=== PATIENT | male | born 1950 | race Two or more races ===

== ENCOUNTER 2017-08-05 20:24 | Emergency (ER) | payer MEDICAID, MEDICARE ==
[~2017-08-05] VITALS: Ht 165.1 cm; Wt 81.6 kg
[2017-08-05] MEDS ORDERED: cloNIDine HCL 0.1 MG TAB PO ONE (20:30)
[2017-08-05 21:28] LABS: Basophils # (auto) 0.1 uL; Basophils % (auto) 0.5 % (0.0-2.0); Eosinophils # (auto) 0 uL; Eosinophils % (auto) 0.2 % (0.0-7.0); Lymphocytes # (auto) 0.8 uL; Mean Corpuscular Hgb Conc. 34.9 g/dL (32.0-36.0); Monocytes # (auto) 0.9 uL; Monocytes % (auto) 6.5 % (0.0-12.0); Neutrophils # (auto) 11.3 uL; Neutrophils % (auto) 86.8 % (37.0-80.0); Nucleated Red Blood Cells % 0.1 %; Platelet Count (auto) 196 10^3/uL (140-450); Red Blood Cells 5.17 10^6/uL (4.5-5.90); Red Cell Distribution Width 13.5 % (11.8-14.3)
[2017-08-05 21:44] LABS: Alanine Aminotransferase 55 U/L (16-61); Albumin 4.4 g/dL (3.4-5.0); Alkaline Phosphatase 94 U/L (45-117); Anion Gap 10 (5-15); Aspartate Aminotransferase 30 U/L (15-37); BUN/Creatinine Ratio 11.2; Bilirubin, Total 0.8 mg/dL (0.2-1.0); Blood Urea Nitrogen 12 mg/dL (7-18); Calcium 9.1 mg/dL (8.5-10.1); Carbon Dioxide 28 mmol/L (21-32); Chloride 97 mmol/L (98-107); GFR African American 89 mL/min; GFR Non-African American 73 mL/min; Glucose 124 mg/dL (74-106); Magnesium 2.1 mg/dL (1.6-2.6); Potassium 4.1 mmol/L (3.5-5.1); Sodium 135 mmol/L (136-145); Total Protein 8.3 g/dL (6.4-8.2)
[2017-08-05 21:51] LABS: INR 1.01 (0.9-1.15); Partial Thromboplastin Time 27.3 sec (22.64-33.71)
[2017-08-05] MEDS ORDERED: IBUPROFEN 600 MG TAB PO ONE ×2 (23:09→23:15)
[2017-08-06] MEDS ORDERED: ACETAMINOPHEN 325 MG TAB PO ONE (03:00)
[2017-08-06 03:11] LABS: Urine Blood Normal /uL (Negative); Urine Specific Gravity 1.017 (1.001-1.035)
[2017-08-06 03:14] LABS: Urine Bacteria FEW /hpf (None Seen); Urine Mucus FEW (None Seen); Urine WBC 8 /hpf (0 - 3)
[2017-08-06 04:01] VITALS: BP 97/62
== END 2017-08-06 05:21 | disposition left against medical advice (07) ==
LOC: ER 20:24
DX: I10 Essential (primary) hypertension (principal); R51 Headache; Z53.21 Procedure and treatment not carried out due to patient leaving prior to being seen by health care provider
CPT/HCPCS: 36415; 70450; 71045; 80053; 81001; 83735; 83880; 84484; 85025; 85379; 85610; 85730; 93005

== ENCOUNTER 2017-10-09 13:47 | Inpatient (IN) | payer MEDICARE, MEDICAID ==
[~2017-10-09] VITALS: Ht 162.6 cm; Wt 86.5 kg
[2017-10-09 15:37] LABS: Basophils # (auto) 0 uL; Basophils % (auto) 0.4 % (0.0-2.0); Eosinophils # (auto) 0.1 uL; Eosinophils % (auto) 1.3 % (0.0-7.0); Hematocrit 38.3 % (41.0-53.0); Hemoglobin 13.3 g/dL (13.5-17.5); Lymphocytes # (auto) 1.5 uL; Lymphocytes % (auto) 18.1 % (10.0-50.0); Mean Corpuscular Hemoglobin 32.8 pg (28.0-32.0); Mean Corpuscular Hgb Conc. 34.8 g/dL (32.0-36.0); Mean Corpuscular Volume 94.2 fL (80.0-100.0); Monocytes # (auto) 0.7 uL; Monocytes % (auto) 8.2 % (0.0-12.0); Platelet Count (auto) 157 10^3/uL (140-450); Red Blood Cells 4.07 10^6/uL (4.5-5.90); Red Cell Distribution Width 13.4 % (11.8-14.3); White Blood Cell 8.3 10^3/uL (4.4-10.8)
[2017-10-09 15:54] LABS: Albumin 3.7 g/dL (3.4-5.0); Bilirubin, Total 0.7 mg/dL (0.2-1.0); Calcium 8.8 mg/dL (8.5-10.1); Potassium 4.5 mmol/L (3.5-5.1); Total Protein 6.8 g/dL (6.4-8.2)
[2017-10-09] MEDS ORDERED: SODIUM CHLORIDE 0.9% 1,000 ML IV ONE (16:12)
[2017-10-09] MEDS ORDERED: ACETAMINOPHEN 325 MG TAB PO ONE (16:15)
[2017-10-09 16:46] LABS: Magnesium 2.2 mg/dL (1.6-2.6)
[2017-10-09 18:32] LABS: Urine Bacteria NONE SEEN /hpf (None Seen); Urine Blood Negative /uL (Negative); Urine Specific Gravity 1.007 (1.001-1.035); Urine WBC <1 /hpf (0 - 3)
[2017-10-09] MEDS ORDERED: DEXTROSE (50%) 50ML SYRG IV PRN (21:00)
[2017-10-09] MEDS ORDERED: NITROGLYCERIN 0.4 MG SL TAB SL PRN (21:00)
[2017-10-09] MEDS ORDERED: DOCUSATE SOD 100 MG CAP PO PRN (21:00)
[2017-10-09] MEDS ORDERED: TEMAZEPAM 15 MG CAP PO PRN (21:00)
[2017-10-09] MEDS ORDERED: MORPHINE SULFATE 4 MG/ML SYR/VIAL IV PRN (21:00)
[2017-10-09] MEDS ORDERED: ACETAMINOPHEN 325 MG TAB PO PRN (21:00)
[2017-10-09] MEDS ORDERED: SODIUM CHLORIDE 0.9% 1,000 ML IV SCH (21:00)
[2017-10-09] MEDS ORDERED: ONDANSETRON HCL 4 MG/2 ML VIAL IV PRN (21:00)
[2017-10-09] MEDS ORDERED: ENOXAPARIN SOD 40 MG/0.4 ML SYRINGE SC ONE (21:15)
[2017-10-09] MEDS: GABAPENTIN 300 MG CAP PO SCH (21:48)
[2017-10-09] MEDS: FAMOTIDINE 20 MG TAB PO SCH (21:49)
[2017-10-09] MEDS ORDERED: cloNIDine HCL 0.1 MG TAB PO PRN (22:15)
[2017-10-10] MEDS: InsuLIN REG 1unit/0.01ml Soln (100units/ml) SC SCH ×5 (00:54→23:46)
[2017-10-10] MEDS: HYDROcodone-ACET 5/325MG TAB PO PRN ×3 (00:55→09:42)
[2017-10-10 01:22] VITALS: BP 134/77
[2017-10-10] MEDS ORDERED: TIZA4CAP PO (01:22)
[2017-10-10] MEDS ORDERED: GABA400C11 PO (01:22)
[2017-10-10] MEDS ORDERED: OXYC15TA77 PO (01:22)
[2017-10-10] MEDS ORDERED: METF-370 PO (01:22)
[2017-10-10] MEDS: GABAPENTIN 300 MG CAP PO SCH ×3 (05:01→21:39)
[2017-10-10 05:11] LABS: Basophils # (auto) 0 uL; Basophils % (auto) 0.5 % (0.0-2.0); Eosinophils # (auto) 0.1 uL; Eosinophils % (auto) 1.7 % (0.0-7.0); Hematocrit 36.3 % (41.0-53.0); Hemoglobin 12.9 g/dL (13.5-17.5); Lymphocytes # (auto) 1.6 uL; Mean Corpuscular Hgb Conc. 35.5 g/dL (32.0-36.0); Mean Corpuscular Volume 93.1 fL (80.0-100.0); Monocytes # (auto) 0.5 uL; Monocytes % (auto) 8.2 % (0.0-12.0); Neutrophils # (auto) 4.3 uL; Neutrophils % (auto) 65.6 % (37.0-80.0); Nucleated Red Blood Cells % 0.1 %; Platelet Count (auto) 130 10^3/uL (140-450); Red Cell Distribution Width 13.4 % (11.8-14.3); White Blood Cell 6.5 10^3/uL (4.4-10.8)
[2017-10-10 05:31] LABS: Albumin 3.2 g/dL (3.4-5.0); BUN/Creatinine Ratio 14.7; Bilirubin, Total 0.4 mg/dL (0.2-1.0); Calcium 8.1 mg/dL (8.5-10.1); Potassium 3.8 mmol/L (3.5-5.1); Total Protein 6.1 g/dL (6.4-8.2)
[2017-10-10] MEDS: ACCU-CHEK COMFORT CURVE STRIP VI SCH ×5 (06:00→23:46)
[2017-10-10] MEDS ORDERED: metFORMIN HYDROCHLORIDE 500 MG TAB PO SCH (07:00)
[2017-10-10 08:00] VITALS: BP 133/70
[2017-10-10] MEDS: ENOXAPARIN SOD 40 MG/0.4 ML SYRINGE SC SCH (09:41)
[2017-10-10] MEDS: FAMOTIDINE 20 MG TAB PO SCH ×2 (09:42→21:39)
[2017-10-10 11:50] VITALS: BP 157/96
[2017-10-10] MEDS ORDERED: ADENOSINE 71 MG in GIVE UN-DILUTED 0 ML IV STA (12:36)
[2017-10-10 14:11] VITALS: BP 194/90
[2017-10-10] MEDS: OXYCODONE W/ ACETAMINOPHEN 5/325MG TABLET PO PRN ×2 (15:13→21:44)
[2017-10-10 15:50] VITALS: BP 176/94
[2017-10-10] MEDS: hydrALAZINE HCL 25 MG TAB PO PRN ×2 (15:58→21:44)
[2017-10-10 19:58] VITALS: BP 176/95
[2017-10-11] MEDS: OXYCODONE W/ ACETAMINOPHEN 5/325MG TABLET PO PRN ×3 (03:50→18:28)
[2017-10-11 05:22] VITALS: BP 141/66
[2017-10-11] MEDS: GABAPENTIN 300 MG CAP PO SCH ×3 (05:52→21:42)
[2017-10-11] MEDS: ACCU-CHEK COMFORT CURVE STRIP VI SCH ×3 (05:52→17:59)
[2017-10-11] MEDS: InsuLIN REG 1unit/0.01ml Soln (100units/ml) SC SCH ×3 (05:52→18:24)
[2017-10-11 07:30] LABS: Basophils # (auto) 0 uL; Basophils % (auto) 0.4 % (0.0-2.0); Eosinophils # (auto) 0.1 uL; Eosinophils % (auto) 0.9 % (0.0-7.0); Hematocrit 46.3 % (41.0-53.0); Hemoglobin 16.3 g/dL (13.5-17.5); Lymphocytes # (auto) 2.1 uL; Lymphocytes % (auto) 22.8 % (10.0-50.0); Mean Corpuscular Hemoglobin 32.8 pg (28.0-32.0); Mean Corpuscular Hgb Conc. 35.2 g/dL (32.0-36.0); Mean Corpuscular Volume 92.9 fL (80.0-100.0); Monocytes # (auto) 0.7 uL; Monocytes % (auto) 7.9 % (0.0-12.0); Neutrophils # (auto) 6.3 uL; Platelet Count (auto) 176 10^3/uL (140-450); Red Blood Cells 4.98 10^6/uL (4.5-5.90); Red Cell Distribution Width 13.6 % (11.8-14.3); White Blood Cell 9.3 10^3/uL (4.4-10.8)
[2017-10-11 07:33] VITALS: BP 188/98
[2017-10-11 07:41] LABS: INR 0.96 (0.9-1.15); Partial Thromboplastin Time 27.1 sec (22.64-33.71); Prothrombin Time 10.5 sec (9.37-12.3)
[2017-10-11 07:46] LABS: BUN/Creatinine Ratio 12.2; Calcium 9.5 mg/dL (8.5-10.1); Potassium 3.7 mmol/L (3.5-5.1)
[2017-10-11] MEDS ORDERED: SOD CHL 0.9%/ KCL 20MEQ 1,000 ML IV ONE (09:00)
[2017-10-11] MEDS: FAMOTIDINE 20 MG TAB PO SCH ×2 (10:00→21:42)
[2017-10-11] MEDS: ENOXAPARIN SOD 40 MG/0.4 ML SYRINGE SC SCH (10:00)
[2017-10-11] MEDS ORDERED: hydrALAZINE HCL 20 MG/ML VL IV PRN (12:00)
[2017-10-11 13:00] VITALS: BP 169/105
[2017-10-11] MEDS ORDERED: LIDOCAINE HCL 2 %PF INJ 10ML AMP IJ ONE (13:09)
[2017-10-11] MEDS ORDERED: IODIXANOL 320MG/ML 100ML BTL IV ONE (13:09)
[2017-10-11] MEDS ORDERED: MIDAZOLAM HCL 1MG/1ML-2 ML VIAL ONE (15:18)
[2017-10-11] MEDS ORDERED: fentaNYL CITRATE 100 MCG/2 ML VL ONE (15:18)
[2017-10-11] MEDS ORDERED: SODIUM CHL 0.9% 50 ML ONE (15:18)
[2017-10-11] MEDS ORDERED: VERAPAMIL 2.5MG/ML INJ 2ML VIAL IV ONE (15:18)
[2017-10-11] MEDS ORDERED: ANGIOMAX 250 MG VIAL IV ONE (15:18)
[2017-10-11] MEDS ORDERED: METOPROLOL TARTRATE 1MG/1ML-5ML VIAL IV ONE (15:42)
[2017-10-11] MEDS ORDERED: HEPARIN SODIUM (PORCINE) 5000 UNITS/ML 1ML VIAL ONE (15:45)
[2017-10-11] MEDS ORDERED: LOSARTAN POTASSIUM 25 MG TAB PO ONE (20:00)
[2017-10-11] MEDS: METOPROLOL TARTRATE 25 MG TAB PO SCH (21:41)
[2017-10-11 22:00] VITALS: BP 135/83
[2017-10-12] MEDS: ACCU-CHEK COMFORT CURVE STRIP VI SCH ×3 (00:04→11:51)
[2017-10-12] MEDS: InsuLIN REG 1unit/0.01ml Soln (100units/ml) SC SCH ×3 (00:14→11:58)
[2017-10-12 05:00] VITALS: BP 126/68
[2017-10-12] MEDS: GABAPENTIN 300 MG CAP PO SCH (06:02)
[2017-10-12] MEDS: OXYCODONE W/ ACETAMINOPHEN 5/325MG TABLET PO PRN ×2 (06:03→11:50)
[2017-10-12 06:38] LABS: Basophils # (auto) 0 uL; Basophils % (auto) 0.4 % (0.0-2.0); Eosinophils # (auto) 0.1 uL; Eosinophils % (auto) 1.3 % (0.0-7.0); Hematocrit 43.4 % (41.0-53.0); Hemoglobin 15.1 g/dL (13.5-17.5); Lymphocytes # (auto) 1.9 uL; Lymphocytes % (auto) 20.9 % (10.0-50.0); Mean Corpuscular Hemoglobin 32.4 pg (28.0-32.0); Mean Corpuscular Hgb Conc. 34.9 g/dL (32.0-36.0); Mean Corpuscular Volume 92.7 fL (80.0-100.0); Monocytes # (auto) 0.8 uL; Monocytes % (auto) 9.4 % (0.0-12.0); Nucleated Red Blood Cells % 0.1 %; Platelet Count (auto) 184 10^3/uL (140-450); Red Blood Cells 4.67 10^6/uL (4.5-5.90); Red Cell Distribution Width 13.4 % (11.8-14.3); White Blood Cell 8.9 10^3/uL (4.4-10.8)
[2017-10-12 07:03] LABS: Calcium 8.7 mg/dL (8.5-10.1); Potassium 3.9 mmol/L (3.5-5.1)
[2017-10-12 07:33] VITALS: BP 125/86
[2017-10-12] MEDS: FAMOTIDINE 20 MG TAB PO SCH (09:40)
[2017-10-12] MEDS: ENOXAPARIN SOD 40 MG/0.4 ML SYRINGE SC SCH (09:40)
[2017-10-12] MEDS: METOPROLOL TARTRATE 25 MG TAB PO SCH (09:41)
[2017-10-12] MEDS ORDERED: LOSARTAN POTASSIUM 25 MG TAB PO SCH (10:00)
[2017-10-12 11:03] VITALS: BP 125/86
[2017-10-12 12:19] VITALS: BP 124/79
== END 2017-10-12 12:25 | disposition home or self-care (01) | DRG 287 ==
LOC: ER 13:47 → TELE 13:48 → DOU IN ICU 23:43 → TELE-CENTR 23:50
PROVIDERS: ADMIT Nurse Practitioner; ATTEND Internal Medicine
PROC: 4A023N7 Measurement of Cardiac Sampling and Pressure, Left Heart, Percutaneous Approach (ICD-10-PCS; principal; 2017-10-11)
PROC: B2111ZZ Fluoroscopy of Multiple Coronary Arteries using Low Osmolar Contrast (ICD-10-PCS; 2017-10-11)
DX: R00.1 Bradycardia, unspecified (principal); I95.2 Hypotension due to drugs; E11.9 Type 2 diabetes mellitus without complications; E66.9 Obesity, unspecified; I10 Essential (primary) hypertension; I49.9 Cardiac arrhythmia, unspecified; M48.07 Spinal stenosis, lumbosacral region; Z79.899 Other long term (current) drug therapy; Z86.73 Personal history of transient ischemic attack (TIA), and cerebral infarction without residual deficits; Z68.32 Body mass index [BMI] 32.0-32.9, adult
CPT/HCPCS: 36415; 71046; 78452; 80048; 80053; 81001; 82962; 83735; 84443; 84484; 85025; 85610; 85730; 86850; 86900; 86901; 87081; 93005; 93017; 93306; 93458; 94761; 96360; 96361; 96372; 99152; J0153; J1815; J2250; Q9967

== ENCOUNTER 2017-12-10 14:17 | Emergency (ER) | payer MEDICARE, MEDICAID ==
[~2017-12-10 14:17] MED LIST: GABA400C11 PO; METF-370 PO; OXYC15TA77 PO; TIZA4CAP PO
== END 2017-12-10 14:40 | disposition left against medical advice (07) ==
LOC: ER 14:17
DX: R42 Dizziness and giddiness (principal); Z53.21 Procedure and treatment not carried out due to patient leaving prior to being seen by health care provider